=== PATIENT | female | born 2000 | race African-American/Black ===

== ENCOUNTER 2024-10-20 10:48 | Emergency (ER) | payer BC ==
[2024-10-20 11:13] VITALS: RESP 20; BMI 45.7
[2024-10-20] MEDS ORDERED: ONDANSETRON *ODT* 4 MG TABLET ONE (11:44)
[2024-10-20] MEDS ORDERED: ALBUTEROL SO4 0.083% IH SOL 2.5 MG/3 ML VIAL.NEB. NEB ONE (11:44)
[2024-10-20] MEDS ORDERED: ACETAMINOPHEN 325 MG TABLET (FP) ONE (11:44)
[2024-10-20] MEDS: ALBUTEROL SO4 0.083% IH SOL 2.5 MG/3 ML VIAL.NEB. NEB SCH (11:59)
[2024-10-20] MEDS ORDERED: FAMOTIDINE 20 MG/50 ML IVPB 20 MG/50 ML MG IVPB ONE (12:02)
[2024-10-20] MEDS: ONDANSETRON *ODT* 4 MG TABLET SL ONE ×2 (12:22)
[2024-10-20] MEDS: FAMOTIDINE 20 MG/50 ML IVPB 20 MG in PREMIX 50 IVPB ONE (12:22)
[2024-10-20] MEDS: ACETAMINOPHEN 500 MG TABLET (FP) PO ONE (12:22)
[2024-10-20] MEDS: SODIUM CHLORIDE 1,000 ML IV ONE (12:23)
[2024-10-20 12:41] LABS: BASO % 0.3 % (0-2.0); EOS % 0.4 % (0-4.5); HEMATOCRIT 32.6 % (32.4-45.2); HEMOGLOBIN 10.6 GM/dL (10.7-15.3); LYMPH % 9.8 % (8-40); MCH 23.8 pg (25.7-33.7); MCHC 32.4 g/dl (32.0-36.0); MEAN CELL VOLUME 73.4 fl (80-96); MEAN PLT VOLUME 6.8 fl (7.5-11.1); MONO % 6.3 % (3.8-10.2); NEUT % 83.2 % (42.8-82.8); PLATELET COUNT 672 10^3/uL (134-434); RBC 4.44 M/mm3 (3.60-5.2); RDW 16.8 % (11.6-15.6); WHITE BLOOD COUNT 15.6 K/mm3 (4.0-10.0)
[2024-10-20 13:10] LABS: POTASSIUM 4.8 mmol/L (3.5-5.1)
[2024-10-20] MEDS: ONDANSETRON 4 MG/2 ML VIAL IVPB ONE ×2 (13:11→18:42)
[2024-10-20 13:12] LABS: CALCIUM 9.5 mg/dL (8.5-10.1)
[2024-10-20 13:13] LABS: ALBUMIN 3.4 g/dl (3.4-5.0); BLOOD UREA NITROGEN 9.4 mg/dL (7-18)
[2024-10-20 13:16] LABS: CREATININE 0.9 mg/dL (0.55-1.3)
[2024-10-20 13:17] LABS: BILIRUBIN,TOTAL 0.6 mg/dL (0.2-1)
[2024-10-20 14:07] LABS: HIV INTERPRETATION NEGATIVE (NEGATIVE)
[2024-10-20 14:57] VITALS: BP 133/79; PULSE 102; TEMP 98.3
[2024-10-20] MEDS ORDERED: AZITHROMYCIN IVPB 500 MG/250 ML BAG IVPB ONE (17:34)
[2024-10-20] MEDS: AZITHROMYCIN IVPB 500 MG in DEXTROSE 5%-WATER - 250 ML IVPB ONE (17:47)
[2024-10-20] MEDS ORDERED: MAG HYDROX/AL HYDROX/SIMETH 30 ML UNIT-DOSE CUP ONE ×2 (18:18→19:24)
[2024-10-20] MEDS ORDERED: ONDANSETRON 4 MG/2 ML VIAL ONE (18:39)
[2024-10-20] MEDS: CEFPODOXIME PROXETIL 200 MG TABLET [NF] PO ONE (19:32)
[2024-10-20] MEDS: MAG HYDROX/AL HYDROX/SIMETH 30 ML UNIT-DOSE CUP PO ONE (19:32)
== END 2024-10-20 19:40 | disposition home or self-care (01) ==
LOC: JER 10:48
PROC: 3E033GC Introduction of Other Therapeutic Substance into Peripheral Vein, Percutaneous Approach (ICD-10-PCS; principal; 2024-10-20)
PROC: 3E03329 Introduction of Other Anti-infective into Peripheral Vein, Percutaneous Approach (ICD-10-PCS; 2024-10-20)
PROC: 3E033GC Introduction of Other Therapeutic Substance into Peripheral Vein, Percutaneous Approach (ICD-10-PCS; 2024-10-20)
PROC: 3E0F7GC Introduction of Other Therapeutic Substance into Respiratory Tract, Via Natural or Artificial Opening (ICD-10-PCS; 2024-10-20)
DX: J18.9 Pneumonia, unspecified organism (principal); K52.9 Noninfective gastroenteritis and colitis, unspecified; R06.02 Shortness of breath; R05.9 Cough, unspecified; R50.9 Fever, unspecified; R11.2 Nausea with vomiting, unspecified; R10.13 Epigastric pain; R07.89 Other chest pain; Z20.822 Contact with and (suspected) exposure to COVID-19
CPT/HCPCS: 0241U-QW; 36415; 71045-TC-FY; 74177-TC; 80053; 83690; 84484; 84703; 85025; 86803; 87389; 93005; 93010; 99285-25; Q0162; Q9967